=== PATIENT | female | born 1985 | race African-American/Black ===

== ENCOUNTER 2016-11-21 09:40 | Emergency (ER) | payer MEDICAID ==
[~2016-11-21] VITALS: Ht 172.7 cm; Wt 92.5 kg
[~2016-11-21 09:40] MED LIST: IBUP-974 PO
[2016-11-21 09:48] VITALS: BP 104/70
--- NOTE | 2016-11-21 11:07 | NUR ---
PATIENT PRESENTS TO ED WITH RIGHT HAND PAIN SWELLING . PT STATES . DENIES N/V/D; SKIN IS PINK/WARM/DRY; AAOX4 WITH EVEN AND STEADY GAIT; LUNGS CLEAR BL; HR EVEN AND REGULAR; PT DENIES ANY FEVER, CP, SOB, OR COUGH AT THIS TIME; PATIENT STATES PAIN OF 4/10 AT THIS TIME; VSS; PATIENT POSITIONED FOR COMFORT; HOB ELEVATED; BEDRAILS UP X2; BED DOWN. ER MD MADE AWARE OF PT STATUS.
[2016-11-21] MEDS ORDERED: traMADol 50 MG TAB PO ONE (11:50)
[2016-11-21 12:15] VITALS: BP 121/66
--- NOTE | 2016-11-21 12:15 | NUR ---
Patient discharged with v/s stable. Written and verbal after care instructions given and explained. Patient alert, oriented and verbalized understanding of instructions. Ambulatory with steady gait. All questions addressed prior to discharge. ID band removed. Patient advised to follow up with PMD. Rx of MOTRIN AND TRAMADOL given. Patient educated on indication of medication including possible reaction and side effects. COPY OF DISK SENT W/PT FOR F/U W/PCP. Opportunity to ask questions provided and answered.
== END 2016-11-21 12:15 | disposition home or self-care (01) ==
LOC: MED 09:40
DX: S62.394A Other fracture of fourth metacarpal bone, right hand, initial encounter for closed fracture (principal); W01.0XXA Fall on same level from slipping, tripping and stumbling without subsequent striking against object, initial encounter; Y93.89 Activity, other specified; Y92.89 Other specified places as the place of occurrence of the external cause; Y99.8 Other external cause status
CPT/HCPCS: 73130; 99284

== ENCOUNTER 2017-06-12 23:35 | Observation (INO) | payer OTHER ==
[~2017-06-12] VITALS: Ht 172.7 cm; Wt 108.0 kg
[2017-06-13] MEDS ORDERED: PREN1SGL25 PO (00:33)
[2017-06-13] MEDS ORDERED: NACL 0.9% 1,000 ML IV SCH (00:35)
[2017-06-13 00:51] LABS: BASOPHILS # (AUTO) 0.2 K/uL (0.00-0.22); BASOPHILS % (AUTO) 2.4 % (0.0-2.0); EOSINOPHILS # (AUTO) 0.2 K/uL (0-0.4); HEMATOCRIT 35.9 % (36-48); HEMOGLOBIN 11.4 g/dL (12.0-16.0); LYMPHOCYTES # (AUTO) 1.6 K/uL (2.5-16.5); LYMPHOCYTES % (AUTO) 21.4 % (20.5-51.1); MEAN CORPUSCULAR HEMOGLOBIN 28 pg (27-31); MEAN CORPUSCULAR HGB CONC 32 g/dL (33-37); MEAN CORPUSCULAR VOLUME 88 fL (80-94); MONOCYTES # (AUTO) 0.8 K/uL (0.8-1.0); MONOCYTES % (AUTO) 10.8 % (1.7-9.3); NEUTROPHILS # (AUTO) 4.8 K/uL (1.8-7.7); NEUTROPHILS % (AUTO) 63.4 % (42.2-75.2); PLATELET COUNT (AUTO) 168 K/uL (140-450); RED BLOOD CELL COUNT(AUTO) 4.07 MIL/uL (4.20-5.40); RED CELL DISTRIBUTION WIDTH 13.4 % (11.6-13.7); WHITE BLOOD COUNT (AUTO) 7.6 K/uL (4.8-10.8)
[2017-06-13 01:07] LABS: ALBUMIN 2.5 g/dL (3.4-5.0); ANION GAP 15.1 (8-16); CARBON DIOXIDE 21.5 mmol/L (21-32); CREATININE 0.5 mg/dL (0.6-1.3); POTASSIUM 3.6 mmol/L (3.5-5.1); TOTAL BILIRUBIN 0.2 mg/dL (0.0-1.0)
[2017-06-13] MEDS ORDERED: cefTRIAXone 1,000 MG VIAL ONE (01:09)
[2017-06-13 01:31] VITALS: BP 106/64
--- NOTE | 2017-06-13 03:06 | NUR ---
See Dr. chamberlain in AM Addendum: 06/13/17 at 0307 by Christine Covarrubias RN Amended: Links added.
== END 2017-06-13 03:20 | disposition home or self-care (01) ==
LOC: MLD 23:35
PROVIDERS: ADMIT Obstetrics & Gynecology; ATTEND Obstetrics & Gynecology
DX: O99.613 Diseases of the digestive system complicating pregnancy, third trimester (principal); K80.80 Other cholelithiasis without obstruction; K76.0 Fatty (change of) liver, not elsewhere classified; Z3A.34 34 weeks gestation of pregnancy
CPT/HCPCS: 36415; 76705; 76815; 80053; 82150; 83690; 85025; 96361; 96365; G0378; J0696; J7060; Q0092

== ENCOUNTER 2018-05-18 08:27 | Emergency (ER) | payer OTHER ==
[~2018-05-18] VITALS: Ht 170.2 cm; Wt 110.3 kg
[~2018-05-18 08:27] MED LIST changes: +PREN1SGL25 PO
[2018-05-18 08:32] VITALS: BP 135/94
--- NOTE | 2018-05-18 08:36 | NUR ---
PT AMBULATES TO BED 12
--- NOTE | 2018-05-18 08:40 | NUR ---
33Y/F BIB SELF C/O RASH ALL OVER BODY X 1 WEEK. PT TOOK WELLBUTRIN FOR 2 WKS HAD SWOLLEN LIPS; DENIES SOB. PT IS AAOX4, VSS, BREATHING EVEN AND UNLABOR, NO SWELLING AT THE LIPS OR TOUNGE AT THIS TIME; BED DOWN, BED RAIL UP X 1, ER MD AWARE AND NOTIFIED OF PATIENT STATUS. HX; DENIES RX; WELBUTRIN
[2018-05-18] MEDS ORDERED: FAMOTIDINE 20 MG TAB PO ONE (09:00)
[2018-05-18] MEDS ORDERED: diphenhydrAMINE 50 MG/ML VIAL IM ONE (09:00)
[2018-05-18] MEDS ORDERED: DEXAMETHASONE 10 MG/ML VIAL IM ONE (09:00)
[2018-05-18] MEDS ORDERED: diphenhydrAMINE 50 MG/ML VIAL ONE (09:16)
[2018-05-18] MEDS ORDERED: DEXAMETHASONE 4 MG/ML VIAL ONE (09:17)
[2018-05-18] MEDS ORDERED: FAMOTIDINE 20 MG TAB ONE (09:19)
[2018-05-18 09:40] VITALS: BP 112/71
--- NOTE | 2018-05-18 09:40 | NUR ---
Patient discharged with v/s stable. Written and verbal after care instructions given and explained. Patient alert, oriented and verbalized understanding of instructions. Ambulatory with steady gait. All questions addressed prior to discharge. ID band removed. Patient advised to follow up with PMD. Rx of pepcid,prednisone,benadryl given. Patient educated on indication of medication including possible reaction and side effects. Opportunity to ask questions provided and answered.
--- NOTE | 2018-05-18 09:40 | NUR ---
as per primary nurse katia david, patient took uber ride to home
== END 2018-05-18 09:40 | disposition home or self-care (01) ==
LOC: MED 08:27
DX: L50.9 Urticaria, unspecified (principal); F17.200 Nicotine dependence, unspecified, uncomplicated; Z79.1 Long term (current) use of non-steroidal anti-inflammatories (NSAID)
CPT/HCPCS: 96372; 99284; J1100; J1200

== ENCOUNTER 2019-09-04 08:28 | Emergency (ER) | payer OTHER ==
[~2019-09-04] VITALS: Ht 175.3 cm; Wt 109.3 kg
[2019-09-04 08:43] VITALS: BP 131/85
--- NOTE | 2019-09-04 08:47 | NUR ---
PT TO RESTROOM FOR URINE SAMPLE
--- NOTE | 2019-09-04 08:57 | NUR ---
RECEIVED A 34/F FROM TRIAGE FOR ABDOMINAL PAIN LASTING 2 DAYS. PT REPORTS PAIN IN BILATER LOWER QUADRANTS WITH N/V/D. REPORTS 6 EPISODES OF EMESIS TODAY. ABD IS SOFT, NON TENDER, NO DISTENTION NOTED. BOWEL SOUNDS ACTIVE AND REGULAR. IN BED FOR MSE.
--- NOTE | 2019-09-04 09:36 | NUR ---
DR CHÁVEZ AT BEDSIDE EXAMINING PATIENT.
[2019-09-04] MEDS ORDERED: NACL 0.9% 500 ML IV ONE (09:38)
[2019-09-04] MEDS ORDERED: ONDANSETRON 4 MG/2 ML VIAL IVP ONE (09:40)
[2019-09-04] MEDS ORDERED: KETOROLAC 30 MG/ML VIAL IVP ONE (09:40)
--- NOTE | 2019-09-04 10:29 | NUR ---
PT TO X-RAY BY AKILA
--- NOTE | 2019-09-04 10:29 | NUR ---
LABS DRAWN ON PT, SENT TO LAB TO PROCESS STAT
[2019-09-04 10:51] LABS: BASOPHILS % (AUTO) 0.4 % (0.0-2.0); EOSINOPHILS % (AUTO) 0.6 % (0.0-4.0); HEMATOCRIT 37.8 % (36-48); HEMOGLOBIN 12.2 g/dL (12.0-16.0); LYMPHOCYTES # (AUTO) 1.6 K/uL (2.5-16.5); LYMPHOCYTES % (AUTO) 28.6 % (20.5-51.1); MEAN CORPUSCULAR HEMOGLOBIN 27 pg (27-31); MEAN CORPUSCULAR HGB CONC 32 g/dL (33-37); MEAN CORPUSCULAR VOLUME 83.4 fL (80-94); MONOCYTES # (AUTO) 0.7 K/uL (0.8-1.0); MONOCYTES % (AUTO) 11.8 % (1.7-9.3); NEUTROPHILS # (AUTO) 3.2 K/uL (1.8-7.7); NEUTROPHILS % (AUTO) 58.6 % (42.2-75.2); PLATELET COUNT (AUTO) 224 K/uL (140-450); RED BLOOD CELL COUNT(AUTO) 4.53 MIL/uL (4.20-5.40); RED CELL DISTRIBUTION WIDTH 14.1 % (11.6-13.7); WHITE BLOOD COUNT (AUTO) 5.5 K/uL (4.8-10.8)
[2019-09-04 11:12] LABS: ALBUMIN 3.3 g/dL (3.4-5.0); ANION GAP 13.9 (8-16); CARBON DIOXIDE 25.4 mmol/L (21-32); CREATININE 0.9 mg/dL (0.6-1.3); POTASSIUM 3.3 mmol/L (3.5-5.1); TOTAL BILIRUBIN 0.4 mg/dL (0.0-1.0)
[2019-09-04 11:47] VITALS: BP 139/76
== END 2019-09-04 11:49 | disposition home or self-care (01) ==
LOC: MED 08:28
DX: A08.4 Viral intestinal infection, unspecified (principal); Z79.899 Other long term (current) drug therapy
CPT/HCPCS: 36415; 74022; 80053; 81002; 81025; 85025; 96374; 96375; 99284; J1885; J2405; J7030

== ENCOUNTER 2019-10-31 18:43 | Emergency (ER) | payer OTHER ==
[~2019-10-31] VITALS: Ht 170.2 cm; Wt 114.3 kg
[2019-10-31 18:49] VITALS: BP 112/72
[2019-10-31] MEDS ORDERED: KETOROLAC 60 MG/2 ML VIAL IM ONE (20:05)
[2019-10-31] MEDS ORDERED: cefTRIAXone 1,000 MG in LIDOCAINE MPF 1% 2.1 ML IM ONE (20:05)
[2019-10-31] MEDS ORDERED: cefTRIAXone 1,000 MG VIAL ONE (20:06)
[2019-10-31] MEDS ORDERED: LIDOCAINE MPF 1% 5 ML ONE (20:07)
[2019-10-31 21:15] VITALS: BP 112/72
== END 2019-10-31 21:15 | disposition home or self-care (01) ==
LOC: MED 18:43
DX: N39.0 Urinary tract infection, site not specified (principal); F17.210 Nicotine dependence, cigarettes, uncomplicated; E66.9 Obesity, unspecified; Z90.49 Acquired absence of other specified parts of digestive tract; Z98.890 Other specified postprocedural states; Z79.899 Other long term (current) drug therapy; Z68.39 Body mass index [BMI] 39.0-39.9, adult
CPT/HCPCS: 81002; 81025; 96372; 99284; J0696; J1885; J2001

== ENCOUNTER 2022-07-05 13:22 | Emergency (ER) | payer OTHER ==
[~2022-07-05] VITALS: Ht 170.2 cm; Wt 113.4 kg
[2022-07-05 14:42] VITALS: BP 120/80
--- NOTE | 2022-07-05 18:42 | NUR ---
PATIENT LEFT WITHOUT BEING SEEN BY PA LIU. NO FURTHER CARE PROVIDED FOR PATIENT.
== END 2022-07-05 18:42 | disposition left against medical advice (07) ==
LOC: MED 13:22
DX: M54.50 Low back pain, unspecified (principal); Z53.21 Procedure and treatment not carried out due to patient leaving prior to being seen by health care provider
CPT/HCPCS: 81002; 81025